=== PATIENT | female | born 1990 | race Two or more races ===

== ENCOUNTER 2018-07-24 10:33 | Outpatient (CLI) | payer OTHER | END 2018-07-24 10:49 | disposition home or self-care (01) | LOC: RX STUDY 10:33 | DX: N91.2 Amenorrhea, unspecified (principal); N93.9 Abnormal uterine and vaginal bleeding, unspecified; Q50.6 Other congenital malformations of fallopian tube and broad ligament ==

== ENCOUNTER 2024-02-21 10:51 | Outpatient (CLI) | payer OTHER | END 2024-02-21 10:57 | disposition home or self-care (01) | LOC: SONOGRAMA 10:51 | PROVIDERS: ATTEND Pathology Anatomic Pathology & Clinical Pathology | DX: D34 Benign neoplasm of thyroid gland (principal); E06.3 Autoimmune thyroiditis; E04.1 Nontoxic single thyroid nodule ==